=== PATIENT | female | born 1965 | race Caucasian/White ===

== ENCOUNTER 2016-02-22 18:53 | Emergency (ER) | payer OTHER ==
[~2016-02-22] VITALS: Ht 165.1 cm; Wt 112.0 kg
[2016-02-22 18:55] VITALS: BP 188/87; PULSE 122; RESP 16; TEMP 97.7; O2SAT 94
[2016-02-22] MEDS ORDERED: DIPH1CHW2 CHEW (19:38)
[2016-02-22] MEDS ORDERED: SODIUM CHLORIDE 0.9% FLUSH 5 ML FLUSH IVF PRN (19:45)
[2016-02-22] MEDS ORDERED: EPINEPHrine HCL (1:1000) 1 MG/ML VIAL IM ONE (19:45)
[2016-02-22] MEDS ORDERED: methylPREDNISolone SOD SUCC 125 MG/2 ML VIAL IVP ONE (19:45)
[2016-02-22] MEDS ORDERED: FAMOTIDINE 20 MG/2 ML VIAL IV PUSH ONE (19:45)
[2016-02-22] MEDS ORDERED: SODIUM CHLOR 0.9% 1000 ML INJ 1,000 ML IV SCH (19:45)
--- NOTE | 2016-02-22 19:53 | PD ---
HPI Chief Complaint: Allergic/Adverse Reaction Time Seen by Provider: 19:41 Travel History International Travel<30 days: No Contact w/Intl Traveler<30days: No Traveled to known affect area: No History of Present Illness HPI The patient is a 50-year-old female who presents to the emergency department for allergic reaction. The patient states she tried an antifungal cream for "athlete's foot" at approximate 5 PM on her feet for the first time. At 6 AM the patient immediately felt numbness and tingling to the feet. She now complains of generalized pruritus, redness to the arms and back, and tingling of the lips and hands. She denies any difficulty swallowing, difficulty talking, or shortness of breath. The patient denies any history of anaphylaxis or previous allergic reactions. The patient did take 50 mg of Benadryl orally prior to arrival. The patient's symptoms are moderate, exacerbated after applying an antifungal cream to the feet, and minimally alleviated with Benadryl. PFSH Past Medical History Medical History: Denies Significant Hx Influenza Vaccination: No ?: Not Past Surgical History Other Surgery: Yes (right wrist surgery ) Social History Alcohol Use: Yes Tobacco Use: Yes (1/2 pack a day ) Substance Use: No Allergies-Medications (Allergen,Severity, Reaction): Coded Allergies: No Known Allergies (Unverified , 02/22/16) Reported Meds & Prescriptions Reported Meds & Active Scripts Active Reported Benadryl Allergy Children (Diphenhydramine HCl) 12.5 Mg Tab 12.5 Mg CHEW Q6H PRN Review of Systems Except as stated in HPI: all other systems reviewed are Neg General / Constitutional: No: Fever HENT: Positive: Other (tingling of the lips), No: Lightheadedness Cardiovascular: Positive: Tachycardia, No: Chest Pain or Discomfort, Diaphoresis Respiratory: No: Shortness of Breath, Wheezing Gastrointestinal: No: Nausea, Vomiting, Abdominal Pain Musculoskeletal: Positive: Edema, No: Myalgias, Weakness Skin: Positive Rash, Positive Itching Neurologic: No: Dizziness Physical Exam Narrative GENERAL: Awake, alert, pleasant 50-year-old female who appears her stated age and is in no acute respiratory distress. SKIN: Diffuse erythema of the back and arms noted which blanches. Uric area present. HEAD: Atraumatic. Normocephalic. EYES: Pupils equal and round. No scleral icterus. No injection or drainage. ENT: No nasal bleeding or discharge. No obvious angioedema of the uvula, lips, or tongue. NECK: Trachea midline. No JVD. CARDIOVASCULAR: Regular, tachycardic with a heart rate of 120. RESPIRATORY: No accessory muscle use. Clear to auscultation. Breath sounds equal bilaterally. No audible wheezing. GASTROINTESTINAL: Abdomen soft, non-tender, nondistended. Hepatic and splenic margins not palpable. MUSCULOSKELETAL: No obvious deformities. No clubbing. No cyanosis. No edema. NEUROLOGICAL: Awake and alert. No obvious cranial nerve deficits. Motor grossly within normal limits. Normal speech. PSYCHIATRIC: Appropriate mood and affect; insight and judgment normal. Data Data Last Documented VS Vital Signs Date Time Temp Pulse Resp B/P Pulse Ox O2 Delivery O2 Flow Rate FiO2 02/22/16 18:55 97.7 122 16 188/87 94 Room Air Orders Basic Metabolic Panel (Bmp) (02/22/16 19:45) Ecg Monitoring (02/22/16 19:45) Iv Access Insert/Monitor (02/22/16 19:45) Oximetry (02/22/16 19:45) Methylprednisolone So Succ Inj (Solumedr (02/22/16 19:45) Famotidine Inj (Pepcid Inj) (02/22/16 19:45) Sodium Chlor 0.9% 1000 Ml Inj (Ns 1000 M (02/22/16 19:45) Sodium Chloride 0.9% Flush (Ns Flush) (02/22/16 19:45) Epinephrine (1:1000) Inj (Adrenalin (1:1 (02/22/16 19:45) MDM Medical Decision Making Medical Screen Exam Complete: Yes Emergency Medical Condition: Yes Medical Record Reviewed: Yes Differential Diagnosis Differential diagnosis includes urticaria, allergic reaction, anaphylaxis, medication side effect. Narrative Course IV was established, labs are drawn and sent, and the patient was placed on cardiac telemetry monitoring and continuous pulse oximetry monitoring. The patient was administered epinephrine 0.3 mg IM. The patient also received Solu- Medrol 125 mg intravenously, Pepcid 20 mg intravenously, and 1 L of fluids. The patient took 50 mg of Benadryl prior to arrival. The patient was monitored in the emergency department. The patient's heart rate improved, came down to less than 100 after epinephrine was administered. The patient did feel "shaky ", however, the numbness in the lips and tingling in the lips, as well as the pruritus, significantly improved. The patient was monitored in the emergency department and so 11 PM. The patient is advised to never use the antifungal cream again. She will be prescribed prednisone, Zantac, and Benadryl. EpiPen as needed. Follow-up with your primary physician. Diagnosis Primary Impression: Anaphylaxis Qualified Code: T78.2XXA - Anaphylaxis, initial encounter Patient Instructions: General Instructions Additional Instructions: Medications as directed. Follow-up with her primary physician. Never use the antifungal cream again. Return if symptoms worsen or progress. Med/Other Pt SpecificInfo: Prescription(s) given, Med Stopped (never used that antifungal cream again) Scripts Epinephrine Inj 0.3 Mg/0.3 Ml Pfpen0.3 Mg IM ONCE PRN (ALLERGIC REACTION) #1 PEN Ref 0 Prov:Tim Quinteros MD 02/22/16 Ranitidine (Zantac 150 Maximum Strength)150 Mg [id number] Mg PO BID 5 Days Prov:Tim Quinteros MD 02/22/16 Diphenhydramine (Benadryl Allergy)25 Mg Tab25 Mg PO Q6H PRN (ALLERGIES) #20 TAB Ref 0 Prov:Tim Quinteros MD 02/22/16 Prednisone (Deltasone)20 Mg Tab40 Mg PO DAILY 4 Days Ref 0 Prov:Tim Quinteros MD 02/22/16 Disposition: 01 DISCHARGE HOME Condition: Stable Tim Quinteros MD Feb 22, 2016 19:53
[2016-02-22] MEDS ORDERED: ZANTTAB PO (20:29)
[2016-02-22] MEDS ORDERED: BENA25TA3 PO (20:29)
[2016-02-22] MEDS ORDERED: EPIN1INJ17 IM (20:29)
[2016-02-22] MEDS ORDERED: PRED-503 PO (20:29)
[2016-02-22 21:30] VITALS: BP 140/63; PULSE 94; RESP 18; O2SAT 97
[2016-02-22 21:34] LABS: BICARBONATE 22.9 MEQ/L (21.0-32.0)
[2016-02-22 21:35] LABS: POTASSIUM 4.8 MEQ/L (3.5-5.1)
[2016-02-22 22:00] VITALS: BP 135/59; PULSE 92; RESP 18; O2SAT 96
[2016-02-22 22:30] VITALS: BP 143/79; PULSE 92; RESP 18; O2SAT 96
== END 2016-02-22 23:46 | disposition home or self-care (01) ==
LOC: NEPB 18:53
DX: T78.2XXA Anaphylactic shock, unspecified, initial encounter (principal)
CPT/HCPCS: 80048; 96372; 96374; 96375; 99283; J0171; J2930; J7030